=== PATIENT | male | born 1945 | race Caucasian/White ===

== ENCOUNTER 2016-05-11 03:05 | Inpatient (IN) | payer OTHER ==
[2016-05-05 11:39] LABS: MANUAL DIFF NEEDED? NO; URINE MICRO REVIEW NEEDED? NO; URINE SOURCE CLEAN CATCH
[2016-05-05 12:00] LABS: BILIRUBIN URINE NEGATIVE (NEGATIVE); BLOOD URINE NEGATIVE (NEGATIVE); COLOR YELLOW; GLUCOSE URINE NEGATIVE (NEGATIVE); LEUKOCYTES URINE NEGATIVE (NEGATIVE); NITRITE URINE NEGATIVE (NEGATIVE); PROTEIN URINE NEGATIVE (NEGATIVE); SP GRAVITY URINE 1.015; TURBIDITY URINE HAZY (CLEAR); UROBILINOGEN URINE NORMAL (NORMAL)
[2016-05-05 12:02] LABS: UR EPITHELIAL CELLS <10 /HPF (<10); URINE BACTERIA NEGATIVE /HPF; URINE RBC <10 /HPF (<10); URINE WBC <10 /HPF (<10)
[2016-05-05 12:06] LABS: BASO% 0.6 % (0.0-0.8); EOS# 0.09 X1000 (0.0-0.7); EOS% 1.7 % (0.0-10.0); HEMATOCRIT 39.8 % (42.0-52.0); LYMPH# 1.78 X1000 (1.2-3.4); LYMPH% 34.2 % (20.5-51.1); MCH 28.1 PG (27-31); MCHC 32.7 g/dL (33-37); MCV 86.1 FL (81-99); MONO# 0.51 X1000 (0.11-0.59); MONO% 9.8 % (1.7-9.3); MPV 9.6 FL (7.4-10.4); NEUT% 53.7 % (42.2-75.2); PLT 301 X1000 (130-400); RBC 4.62 XMIL (4.7-6.1)
[2016-05-05 12:09] LABS: INR 1.07; PROTIME 11.3 Seconds (9.2-11.7); PTT 24.4 Seconds (22.0-36.0)
[2016-05-05 12:53] LABS: CALCIUM 9.3 mg/dL (8.8-10.2); POTASSIUM 4.7 mmol/L (3.5-5.1)
--- NOTE | 2016-05-05 14:38 | EKG Report ---
Test Performed on : 05/05/2016 11:13:04 AM Test Reason : PAT Blood Pressure : / mmHG Vent. Rate : 057 BPM Atrial Rate : 057 BPM P-R Int : 170 ms QRS Dur : 084 ms QT Int : 410 ms P-R-T Axes : 051 014 053 degrees QTc Int : 399 ms Sinus bradycardia. Possible Left atrial enlargement Borderline ECG When compared with ECG of 15-DEC-2015 14:39, No significant change was found Confirmed by Manju Wilcox MD ([id number]) on 05/06/2016 11:05:28 AM
[2016-05-11] MEDS ORDERED: COLACE ONE (07:42)
[2016-05-11] MEDS ORDERED: LYRICA ONE (07:43)
[2016-05-11] MEDS ORDERED: LR 1,000 ML ONE ×2 (07:43→14:58)
[2016-05-11] MEDS ORDERED: KEFZOL 1 GM/D5W 50 ML ONE (07:43)
[2016-05-11] MEDS ORDERED: CELEBREX ONE (07:43)
[2016-05-11] MEDS ORDERED: REGLAN ONE (07:43)
[2016-05-11] MEDS ORDERED: PEPCID ONE (07:43)
[2016-05-11] MEDS ORDERED: TOPROL XL ONE (08:01)
--- NOTE | 2016-05-11 09:14 | HISTORY AND PHYSICAL ---
CHIEF COMPLAINT: Right shoulder pain. HISTORY OF PRESENT ILLNESS: Mr. Gutierrez is a 70-year-old, white male with a history of multiple surgeries on his right shoulder. The last one was a reverse shoulder arthroplasty, which the patient stated got infected, had to remove hardware in the past, and he states that he has had pain. He is being admitted today for a right total shoulder arthroplasty versus hemiarthroplasty. PAST MEDICAL HISTORY: Hypertension, coronary artery disease, Coronary artery bypass graft 2012. Kidney stones. SURGICAL HISTORY: 1. Cholecystectomy. 2. Kidney stone removal. 3. Ocular stroke. FAMILY HISTORY: Noncontributory. SOCIAL HISTORY: Single. Denies tobacco. Denies alcohol. CURRENT MEDICATIONS: 1. Fenofibrate 134 mg p.o. daily. 2. Zoloft 50 mg p.o. at bedtime. 3. Toprol-XL 25 mg p.o. daily. 4. Percocet 10 1 p.o. q.4 hours p.r.n. for pain. 5. Lipitor 40 mg p.o. at bedtime. ALLERGIES: Morphine. PRIMARY CARE PROVIDER: Dr. Blane Olson. REVIEW OF SYSTEMS: HEENT: Patient reports having dentures. He reports not being able to see out of his left eye due to an ocular stroke about a week ago. Cardiac: The patient reports having a coronary artery bypass grafting in 2011. Denies any chest pain or shortness of breath. Pulmonary: Patient denies any lung disease or any wheezing, coughing or hemoptysis. Gastrointestinal: Patient denies any gastrointestinal problems. Denies any nausea, vomiting, diarrhea. Genitourinary: The patient reports having some urinary frequency, as well as a history of kidney stones. Neurological: Patient reports his right hand tingles occasionally. Musculoskeletal: Patient reports both of his shoulders having pain and the right being worse than the left. PHYSICAL EXAMINATION: GENERAL: The patient is sitting up in bed. He is articulate and able to answer questions appropriately. HEENT: Head is normocephalic, atraumatic. Pupils equal, round, reactive to light. Nares patent. Throat without exudate. CARDIAC: S1-S2 auscultated. No murmur, rub or gallop noted. LUNGS: Clear to auscultation bilaterally in all lung harrison. GASTROINTESTINAL: Abdomen is soft, nontender, nondistended. Bowel sounds present in all quadrants. GENITOURINARY: Not examined. NEUROLOGICAL: Patient has good sensation to dull touch in all extremities. Cranial nerves 2-12 grossly intact. The patient does have some decreased sensation in his right hand. MUSCULOSKELETAL: On physical examination of the right shoulder, the patient has pain with palpation, as well as pain with passive range of motion. 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 PLAN: Right total shoulder arthroplasty versus hemiarthroplasty. The risks, benefits, alternatives of surgery were discussed with the patient including risk of anesthesia, infection, bleeding, damage to blood vessels, nerves, tendons, ligaments, and other imponderables were discussed with the patient. He agrees to proceed with surgery at this time. Dictated by SAMEERA Isabel for Gregg Majano MD
[2016-05-11] MEDS ORDERED: NAROPIN 0.5% ONE (09:56)
[2016-05-11] MEDS ORDERED: VERSED ONE (09:57)
[2016-05-11] MEDS ORDERED: DECADRON ONE ×2 (09:58→14:58)
[2016-05-11] MEDS ORDERED: CYKLOKAPRON 1,000 MG/NS 100 ML ONE (10:09)
[2016-05-11] MEDS ORDERED: DURAMORPH ONE (10:11)
[2016-05-11] MEDS ORDERED: TORADOL ONE (10:11)
[2016-05-11] MEDS ORDERED: SODIUM CHLORIDE 0.9% ONE (10:12)
[2016-05-11] MEDS ORDERED: NEOSPORIN G.U. IRRIGANT ONE (10:12)
[2016-05-11] MEDS ORDERED: MARCAINE 0.25% PF/EPI 1:200,000 ONE (10:12)
[2016-05-11] MEDS ORDERED: EXPAREL 1.3% ONE (10:12)
[2016-05-11] MEDS ORDERED: VANCOMYCIN ONE ×2 (10:27→11:50)
[2016-05-11] MEDS ORDERED: TOBRAMYCIN POWDER MISC ONE (10:45)
[2016-05-11 11:04] LABS: URINE MICRO REVIEW NEEDED? NO; URINE SOURCE CATH
[2016-05-11 11:12] LABS: BILIRUBIN URINE NEGATIVE (NEGATIVE); BLOOD URINE TRACE (NEGATIVE); COLOR YELLOW; GLUCOSE URINE NEGATIVE (NEGATIVE); LEUKOCYTES URINE NEGATIVE (NEGATIVE); NITRITE URINE NEGATIVE (NEGATIVE); PH URINE 6.5; PROTEIN URINE NEGATIVE (NEGATIVE); SP GRAVITY URINE 1.018; TURBIDITY URINE CLEAR (CLEAR); UROBILINOGEN URINE NORMAL (NORMAL)
[2016-05-11 11:13] LABS: UR EPITHELIAL CELLS <10 /HPF (<10); URINE BACTERIA NEGATIVE /HPF; URINE WBC <10 /HPF (<10)
[2016-05-11] MEDS ORDERED: DIPRIVAN 1% ONE (13:26)
[2016-05-11] MEDS ORDERED: NS 1,000 ML ONE (13:41)
[2016-05-11] MEDS ORDERED: ZOFRAN PO PRN (14:45)
[2016-05-11] MEDS ORDERED: MILK OF MAGNESIA PO PRN (14:45)
[2016-05-11] MEDS ORDERED: DILAUDID IV PRN (14:45)
--- NOTE | 2016-05-11 14:56 | Diag Imaging Result Document ---
PROCEDURE NAME: SHOULDER 1 VIEW RIGHT - 05/11/2016 SINGLE FRONTAL RADIOGRAPH OF THE RIGHT SHOULDER: COMPARISON: 12/17/2014. FINDINGS: There has been apparent revision of the right shoulder arthroplasty. The arthroplasty hardware is in the expected position. Small radiopaque foci are seen around the shoulder likely representing fragments of cement. There is no evidence of periprosthetic fracture. Anterior skin gloria are noted. IMPRESSION: Satisfactory postoperative right shoulder.
[2016-05-11] MEDS ORDERED: NORCURON ONE (14:57)
[2016-05-11] MEDS ORDERED: ROBINUL ONE (14:57)
[2016-05-11] MEDS ORDERED: EPHEDRINE ONE (14:57)
[2016-05-11] MEDS ORDERED: ZOFRAN ONE (14:57)
[2016-05-11] MEDS ORDERED: NEO-SYNEPHRINE ONE (14:57)
[2016-05-11] MEDS ORDERED: NS 250 ML ONE (14:58)
[2016-05-11] MEDS ORDERED: OFIRMEV 1000 MG/ISOTONIC SOLN 100 ML ONE (14:58)
[2016-05-11] MEDS ORDERED: XYLOCAINE-MPF 2% ONE (14:58)
[2016-05-11] MEDS ORDERED: QUELICIN (DOSE) ONE (14:58)
[2016-05-11] MEDS ORDERED: PIGGYBACK SET 7393 ONE (14:58)
[2016-05-11] MEDS: NS 1,000 ML IV SCH (15:00)
--- NOTE | 2016-05-11 16:31 | OPERATIVE NOTE ---
PROCEDURE DATE: 05/11/2016 PREOPERATIVE DIAGNOSIS: Status post irrigation and debridement right infected reverse shoulder arthroplasty and removal of prosthesis. POSTOPERATIVE DIAGNOSIS: Status post irrigation and debridement right infected reverse shoulder arthroplasty and removal of prosthesis. PROCEDURE: Revision right reverse shoulder arthroplasty with a DePuy Delta Xtend size 10 cemented stem with a 42+ 6 humeral cup, a 42 eccentric Glenosphere and a standard Metaglene. SURGEON: Gregg Majano M.D. RUBBER TUBING SPLICER: CAROLYN Lucas. SECOND COMIC ILLUSTRATOR: Dallas Champion RN. ANESTHESIA: General. IV FLUIDS: 1400 mL lactated Ringer's. ESTIMATED BLOOD LOSS: 150 mL. COMPLICATIONS: None. INDICATION: The patient is a pleasant 70-year-old male, who is status post I and D and removal of infected right reverse shoulder arthroplasty on 12/16/2015. Patient underwent treatment with IV and a course of minimum of 6 weeks of IV antibiotics and subsequent labs and culture was obtained and revealed no further infection. Recommendation to proceed with revision right reverse shoulder arthroplasty was offered. Risks and benefits of surgery were explained, including the risks of anesthesia, , bleeding, infection, failure to relieve pain, postoperative stiffness, nerve injury, blood clots, and other imponderables. All questions were answered. The patient wished to proceed with surgery. DETAILS OF OPERATION: The patient was taken to the operating room and underwent general anesthesia. After adequate anesthesia was obtained, he was placed in the semi-Johnson beach-chair position. The right shoulder was subsequently prepped and draped in the usual sterile fashion. A standard deltopectoral incision was made through the previous surgical incision. The incision was carried through subcutaneous tissue down through the adhesions. It was carried down to the to the joint. Intraoperative cultures were obtained. The Gram stain was negative. After adequate elevation of the soft tissue attention was turned to the glenoid. Debridement was then conducted of the glenoid. After this had been performed, a guide pin was then placed in the appropriate position of the glenoid, central and slightly inferiorly. Reaming was then conducted. The patient was noted to have some bone defect superiorly and posteriorly. After adequate reaming had been conducted, copious irrigation with antibiotic pulsatile lavage. A standard Metaglene was then impacted in position. Had good fit. Two locking screws were placed and 1 nonlocking screw and had good purchase. Appeared to have good stable fixation. A 42 eccentric Glenosphere was then placed with the eccentricity placed inferiorly. Attention turned to the humerus and humeral shaft. The patient had some remnant of the bone superior laterally which was excised and removed. After this had been performed, intramedullary reaming was then conducted up to a size 10. A trial stem was then placed in order to determine the appropriate soft tissue balancing. After this had been performed, curette was used to debride the intramedullary canal. Copious irrigation performed with antibiotic pulsatile lavage while vancomycin was mixed with cement on the back table. After that had been performed antibiotic beads with vancomycin, tobramycin was mixed on the back table. Some antibiotic beads were placed in the intramedullary canal. Cement was then placed in the intramedullary canal. The humerus and the stem was then placed in 10 degrees retroversion at the appropriate height. After the cement had hardened, the trial cup was then placed, +6 humeral cup, had excellent stability and range of motion. The trial humeral cup was then removed. The wound was copiously irrigated with antibiotic pulsatile lavage. Standard 42+ 6 humeral cup was then impacted on the stem. The shoulder was reduced, and carried through a range of motion with excellent stability and range of motion. Exparel was placed in deep soft tissue as well as subcutaneous tissue. Copious irrigation performed once again with antibiotic pulsatile lavage. Antibiotic beads were then placed in the deep soft tissue. 2-0 Vicryl was used to repair the subcutaneous tissue as well was followed by skin gloria. Adaptic, sterile 4 x 4's, ABD pad, and tape applied to the right shoulder, followed by a shoulder immobilizer. All counts were correct. The patient tolerated the procedure well and was transferred to the recovery room in stable condition.
[2016-05-11] MEDS ORDERED: CYKLOKAPRON 1,000 MG in NS 100 ML IV ONE (17:00)
[2016-05-11] MEDS ORDERED: KEFZOL 1 GM/D5W 50 ML IV SCH (18:00)
[2016-05-11] MEDS: TRICOR PO SCH (18:01)
[2016-05-11] MEDS: TYLENOL PO SCH (18:04)
[2016-05-11] MEDS: MAXIPIME 1 GM/NS 50 ML IV SCH (18:36)
[2016-05-11] MEDS ORDERED: ZOLOFT PO SCH (21:00)
[2016-05-11] MEDS ORDERED: TOPROL XL PO SCH (21:00)
[2016-05-11] MEDS ORDERED: LIPITOR PO SCH (21:00)
[2016-05-11] MEDS: COLACE PO SCH (21:49)
[2016-05-11] MEDS: PERIDEX MT SCH (21:49)
[2016-05-12] MEDS: PERCOCET-10 PO PRN ×2 (00:09→04:54)
[2016-05-12] MEDS: TYLENOL PO SCH ×3 (00:10→12:24)
[2016-05-12] MEDS: NS 1,000 ML IV SCH ×2 (00:10→04:54)
[2016-05-12] MEDS: MAXIPIME 1 GM/NS 50 ML IV SCH ×3 (02:01→11:00)
[2016-05-12 06:02] LABS: HEMATOCRIT 33.8 % (42.0-52.0); HEMOGLOBIN 11.1 g/dL (14.0-18.0)
[2016-05-12 06:16] LABS: AGAP 14; BUN 19 mg/dL (8-22); CALCIUM 8.5 mg/dL (8.8-10.2); CHLORIDE 107 mmol/L (98-107); COSMO 281; POTASSIUM 4.6 mmol/L (3.5-5.1); SODIUM 139 mmol/L (136-145); TCO2 18 mmol/L (25-35)
--- NOTE | 2016-05-12 06:58 | PROGRESS NOTE ---
DATE: 05/12/2016 SUBJECTIVE: The patient is a pleasant 70-year-old male who is 1 day status post revision of right reverse total shoulder arthroplasty. He is currently resting comfortably. He is complaining of a headache, however. PHYSICAL EXAMINATION: The patient's right upper extremity, his dressing is intact. He is neurovascularly intact. He is able to flex and extend all of his fingers. DIAGNOSTIC DATA: His hemoglobin is 11.1, hematocrit 33.8. Intraoperative Gram stain revealed no bacteria. Cultures are pending. IMPRESSION: Postoperative day number 1, status post revision of right reverse shoulder arthroplasty. PLAN: At this point, we will change his dressing, Hep-Lock his IV, and discontinue his Kulkarni. We will await his culture results and, if negative, we will plan on discharging him home. The patient will receive home physical therapy.
[2016-05-12 07:39] VITALS: BP 123/82
[2016-05-12] MEDS: PERIDEX MT SCH (08:07)
[2016-05-12] MEDS: TRICOR PO SCH (08:07)
[2016-05-12] MEDS: COLACE PO SCH (08:08)
[2016-05-12] MEDS ORDERED: CELEBREX PO SCH (09:00)
[2016-05-12] MEDS ORDERED: PEPCID PO SCH (09:00)
[2016-05-12] MEDS ORDERED: DECADRON IV ONE (09:00)
[2016-05-12] MEDS ORDERED: TOPROL XL PO SCH (09:00)
== END 2016-05-12 14:43 | disposition home health service (06) | DRG 483 ==
LOC: SURHOLD 03:05 → 4N 10:50
PROVIDERS: ADMIT Orthopaedic Surgery Adult Reconstructive Orthopaedic Surgery; ATTEND Orthopaedic Surgery Adult Reconstructive Orthopaedic Surgery
PROC: 3E0U029 Introduction of Other Anti-infective into Joints, Open Approach (ICD-10-PCS; 2016-05-11)
PROC: 0RRJ00Z Replacement of Right Shoulder Joint with Reverse Ball and Socket Synthetic Substitute, Open Approach (ICD-10-PCS; principal; 2016-05-11 10:31)
DX: Z47.31 Aftercare following explantation of shoulder joint prosthesis (principal); I69.398 Other sequelae of cerebral infarction; I10 Essential (primary) hypertension; I25.10 Atherosclerotic heart disease of native coronary artery without angina pectoris; E78.00 Pure hypercholesterolemia, unspecified; N40.0 Benign prostatic hyperplasia without lower urinary tract symptoms; M19.90 Unspecified osteoarthritis, unspecified site; F32.9 Major depressive disorder, single episode, unspecified; H53.9 Unspecified visual disturbance; Z87.891 Personal history of nicotine dependence; Z95.1 Presence of aortocoronary bypass graft; Z87.442 Personal history of urinary calculi; Z79.899 Other long term (current) drug therapy
CPT/HCPCS: 80048; 81001; 85014; 85018; 85025; 85610; 85730; 86850; 86900; 86901; 87070; 87075; 87205; 93005; 93010; 94761; C9290; J0131; J0330; J0690; J0692; J1100; J1885; J2250; J2274; J2370; J2405; J2795; J3260; J3370; J7030; J7050; J7120; S0020; 97001-GP; 97530-GP